=== PATIENT | female | born 1995 | race Hispanic/Latino ===

== ENCOUNTER 2017-05-04 00:31 | Emergency (ER) | payer MEDICAID ==
[2017-05-04] MEDS ORDERED: HYDROXYZINE HCL 25 MG TABLET ONE (00:59)
== END 2017-05-04 01:50 | disposition home or self-care (01) ==
LOC: EDH 00:31
DX: F41.9 Anxiety disorder, unspecified (principal); J45.909 Unspecified asthma, uncomplicated; F43.10 Post-traumatic stress disorder, unspecified; F12.90 Cannabis use, unspecified, uncomplicated; Z88.8 Allergy status to other drugs, medicaments and biological substances; Z72.0 Tobacco use

== ENCOUNTER 2017-06-22 14:59 | Emergency (ER) | payer MEDICAID, OTHER | END 2017-06-22 15:42 | disposition home or self-care (01) | LOC: EDH 14:59 | DX: F41.1 Generalized anxiety disorder (principal); J45.909 Unspecified asthma, uncomplicated; F31.9 Bipolar disorder, unspecified; F43.10 Post-traumatic stress disorder, unspecified; Z88.8 Allergy status to other drugs, medicaments and biological substances ==

== ENCOUNTER 2020-08-30 05:24 | Emergency (ER) | payer MEDICAID ==
[2020-08-30 06:01] LABS: APPEARANCE,URINE Cloudy (CLEAR); BILIRUBIN,URINE Small (NEGATIVE); COLOR,URINE Dark Yellow (YELLOW); GLUCOSE, URINE (UA) Negative (NEGATIVE); KETONES,URINE Negative (NEGATIVE); LEUKOCYTE ESTERASE ,URINE Moderate (NEGATIVE); NITRATE,URINE Positive (NEGATIVE); OCCULT BLOOD,URINE Large (NEGATIVE); PH,URINE 6.5 (5.0-8.0); PROTEIN,URINE Trace mg/dL (NEGATIVE)
[2020-08-30 06:02] LABS: HCG,QUAL RESULT NEGATIVE (NEGATIVE)
[2020-08-30 06:10] LABS: BACTERIA,URINE Rare /HPF (None Seen); RBC,URINE 26-50 /HPF (0-1); SQUAMOUS EPITHELIAL CELL,UR Few /HPF (0-2)
[2020-08-30] MEDS ORDERED: LIDOCAINE HCL 2% JELLY 5 ML ONE (06:47)
[2020-08-30] MEDS ORDERED: KETOROLAC TROMETHAMINE 30MG/ML ONE (07:53)
[2020-08-30 08:16] LABS: BASOPHILS % (AUTO) 0.5 % (0.0-5.0); EOSINOPHILS % (AUTO) 1.4 % (0.0-8.0); HEMATOCRIT 28.5 % (36-48); LYMPHOCYTES % (AUTO) 46.9 % (21.0-51.0); MEAN CORPUSCULAR HEMOGLOBIN 22.8 pg (27.0-33.0); MEAN CORPUSCULAR HGB CONC 30.2 g/dL (32.0-36.0); MEAN CORPUSCULAR VOLUME 75.6 fL (79-99); NEUTROPHILS % (AUTO) 45.9 % (40.0-77.0); PLATELET COUNT (AUTO) 302 K/uL (130-400); RED BLOOD CELL COUNT(AUTO) 3.77 MIL/uL (4.00-5.50); WHITE BLOOD COUNT (AUTO) 8.7 K/uL (4.8-10.8)
[2020-08-30] MEDS ORDERED: CEFTRIAXONE SODIUM 500 MG VIAL ONE (09:45)
[2020-08-30] MEDS ORDERED: MORPHINE SULFATE 2 MG/ML 1ML SYG ONE (09:46)
[2020-08-30] MEDS ORDERED: ONDANSETRON ODT 4 MG TAB ONE (09:46)
[2020-08-30] MEDS ORDERED: ONDANSETRON HCL 4 MG/2 ML VIAL ONE (09:46)
[2020-08-30] MEDS ORDERED: LIDOCAINE HCL-MPF 1% 2ML VIAL ONE (09:47)
[2020-08-30] MEDS ORDERED: AZITHROMYCIN 250 MG TABLET PO ONE (10:03)
[2020-08-31 20:08] LABS: CHLAMYDIA DNA N.A.AMPLIFY Positive (Negative)
== END 2020-08-30 13:43 | disposition home or self-care (01) ==
LOC: EDH 05:24
DX: N76.0 Acute vaginitis (principal); A59.01 Trichomonal vulvovaginitis; D50.9 Iron deficiency anemia, unspecified; J45.909 Unspecified asthma, uncomplicated; F32.9 Major depressive disorder, single episode, unspecified; F41.9 Anxiety disorder, unspecified; F20.9 Schizophrenia, unspecified; Z88.5 Allergy status to narcotic agent
CPT/HCPCS: 36415; 81001; 81025; 85025; 87088; 87210; 87486; 87797; 96372 ×3; 99285; J0696; J1885; J3490; J2405

== ENCOUNTER 2020-11-07 04:33 | Emergency (ER) | payer MEDICAID ==
[~2020-11-07] VITALS: Ht 167.6 cm; Wt 117.9 kg
[2020-11-07 04:40] VITALS: BP 133/95
[2020-11-07] MEDS ORDERED: ACETAMINOPHEN 325 MG TAB PO ONE (05:00)
[2020-11-07 05:05] LABS: BASOPHILS % (AUTO) 0.8 % (0.0-5.0); EOSINOPHILS % (AUTO) 0.4 % (0.0-8.0); HEMATOCRIT 34.4 % (36-48); LYMPHOCYTES % (AUTO) 41.9 % (21.0-51.0); MEAN CORPUSCULAR HEMOGLOBIN 25.6 pg (27.0-33.0); MEAN CORPUSCULAR VOLUME 80.2 fL (79-99); MONOCYTES % (AUTO) 4.8 % (3.0-13.0); PLATELET COUNT (AUTO) 310 K/uL (130-400); RED BLOOD CELL COUNT(AUTO) 4.29 MIL/uL (4.00-5.50); RED CELL DISTRIBUTION WIDTH 19.9 % (11.0-15.5); WHITE BLOOD COUNT (AUTO) 7.5 K/uL (4.8-10.8)
[2020-11-07 05:13] LABS: CREATININE 0.9 mg/dL (0.5-1.5); POTASSIUM 3.6 mmol/L (3.5-5.1)
[2020-11-07 05:18] LABS: ALBUMIN 3.6 g/dL (3.5-5.0); BILIRUBIN,TOTAL 0.3 mg/dL (0.2-1.0); TOTAL PROTEIN, SERUM 8.6 g/dL (6.0-8.3)
[2020-11-07 06:23] VITALS: BP 134/87
[2020-11-07 07:45] VITALS: BP 134/87
[2020-11-07 07:47] LABS: APPEARANCE,URINE Clear (CLEAR); BILIRUBIN,URINE Negative (NEGATIVE); COLOR,URINE Yellow (YELLOW); GLUCOSE, URINE (UA) Negative (NEGATIVE); KETONES,URINE Negative (NEGATIVE); LEUKOCYTE ESTERASE ,URINE Small (NEGATIVE); NITRATE,URINE Negative (NEGATIVE); OCCULT BLOOD,URINE Trace (NEGATIVE); PH,URINE 7.5 (5.0-8.0); PROTEIN,URINE POS 1+ mg/dL (NEGATIVE); UROBILINOGEN,URINE 0.2 mg/dL (0.2-1.0)
[2020-11-07 07:50] LABS: HCG,QUAL RESULT NEGATIVE (NEGATIVE)
[2020-11-07 08:03] LABS: BACTERIA,URINE Few /HPF (None Seen); RBC,URINE 0-1 /HPF (0-1); WBC,URINE 0-1 /HPF (0-1)
[2020-11-07 08:04] LABS: COARSE GRANULAR CASTS,URINE 0-2 /LPF (None Seen); FINE GRANULAR CASTS,URINE 0-2 /LPF (None Seen)
== END 2020-11-07 09:07 | disposition left against medical advice (07) ==
LOC: EDH 04:33
DX: S00.432A Contusion of left ear, initial encounter (principal); S00.431A Contusion of right ear, initial encounter; S30.0XXA Contusion of lower back and pelvis, initial encounter; S00.83XA Contusion of other part of head, initial encounter; S10.93XA Contusion of unspecified part of neck, initial encounter; E66.9 Obesity, unspecified; I10 Essential (primary) hypertension; E11.9 Type 2 diabetes mellitus without complications; Z88.5 Allergy status to narcotic agent; Y08.89XA Assault by other specified means, initial encounter; Y93.89 Activity, other specified; Y92.89 Other specified places as the place of occurrence of the external cause; Y99.8 Other external cause status
CPT/HCPCS: 36415; 80053; 81001; 81025; 85025

== ENCOUNTER 2021-06-10 12:58 | Emergency (ER) | payer MEDICAID ==
[~2021-06-10] VITALS: Ht 167.6 cm; Wt 110.0 kg
[2021-06-10] MEDS ORDERED: LORAZEPAM 1 MG TABLET PO ONE (13:30)
[2021-06-10 13:59] LABS: APPEARANCE,URINE Cloudy (CLEAR); BILIRUBIN,URINE Negative (NEGATIVE); COLOR,URINE Yellow (YELLOW); GLUCOSE, URINE (UA) Negative (NEGATIVE); KETONES,URINE Trace mg/dL (NEGATIVE); LEUKOCYTE ESTERASE ,URINE Moderate (NEGATIVE); NITRATE,URINE Negative (NEGATIVE); OCCULT BLOOD,URINE Negative (NEGATIVE); PH,URINE 6.5 (5.0-8.0); PROTEIN,URINE Trace mg/dL (NEGATIVE)
[2021-06-10 14:02] LABS: BASOPHILS % (AUTO) 0.5 % (0.0-5.0); EOSINOPHILS % (AUTO) 4.7 % (0.0-8.0); HEMATOCRIT 34.5 % (36-48); LYMPHOCYTES % (AUTO) 55.3 % (21.0-51.0); MEAN CORPUSCULAR HEMOGLOBIN 25.7 pg (27.0-33.0); MEAN CORPUSCULAR HGB CONC 30.4 g/dL (32.0-36.0); MEAN CORPUSCULAR VOLUME 84.4 fL (79-99); MONOCYTES % (AUTO) 5.7 % (3.0-13.0); NEUTROPHILS % (AUTO) 33.6 % (40.0-77.0); PLATELET COUNT (AUTO) 345 K/uL (130-400); RED BLOOD CELL COUNT(AUTO) 4.09 MIL/uL (4.00-5.50); RED CELL DISTRIBUTION WIDTH 17.2 % (11.0-15.5); WHITE BLOOD COUNT (AUTO) 6.2 K/uL (4.8-10.8)
[2021-06-10 14:03] LABS: HCG,QUAL RESULT NEGATIVE (NEGATIVE)
[2021-06-10 14:07] LABS: AMPHET/METH SCREEN,URINE NEGATIVE (NEGATIVE); BARBITURATE SCREEN, URINE NEGATIVE (NEGATIVE); BENZODIAZEPINES SCREEN,URINE POSITIVE (NEGATIVE); CANNABINOID SCREEN,URINE POSITIVE (NEGATIVE); COCAINE SCREEN,URINE POSITIVE (NEGATIVE); OPIATE SCREEN,URINE NEGATIVE (NEGATIVE); PHENCYCLIDINE SCREEN,URINE NEGATIVE (NEGATIVE)
[2021-06-10 14:19] VITALS: BP 177/71
[2021-06-10 14:19] LABS: CREATININE 0.7 mg/dL (0.5-1.5); POTASSIUM 3.7 mmol/L (3.5-5.1)
[2021-06-10 14:25] LABS: BILIRUBIN,TOTAL 0.2 mg/dL (0.2-1.0); CRP QUANTITATIVE 33.8 mg/L (0.00-9.0); TOTAL PROTEIN, SERUM 7.4 g/dL (6.0-8.3)
[2021-06-10 14:35] LABS: BACTERIA,URINE Rare /HPF (None Seen); MUCUS,URINE Few LPF (None Seen); SQUAMOUS EPITHELIAL CELL,UR Few /HPF (0-2); WBC,URINE 0-1 /HPF (0-1)
[2021-06-10] MEDS ORDERED: LORAZEPAM 1 MG TABLET ONE (14:42)
== END 2021-06-10 15:32 | disposition home or self-care (01) ==
LOC: EDH 12:58
DX: R53.1 Weakness (principal); F12.10 Cannabis abuse, uncomplicated; F14.10 Cocaine abuse, uncomplicated; F13.10 Sedative, hypnotic or anxiolytic abuse, uncomplicated; J45.909 Unspecified asthma, uncomplicated; E66.9 Obesity, unspecified; Z68.39 Body mass index [BMI] 39.0-39.9, adult
CPT/HCPCS: 36415; 71045; 80053; 80305; 81001; 81025; 84484; 85025; 86140; 87088

== ENCOUNTER 2023-03-07 23:51 | Emergency (ER) | payer MEDICAID ==
[~2023-03-07] VITALS: Ht 167.6 cm; Wt 72.6 kg
[2023-03-08 00:21] LABS: APPEARANCE,URINE CLEAR (CLEAR); BILIRUBIN,URINE NEGATIVE (NEGATIVE); COLOR,URINE LIGHT-YELLOW (YELLOW); GLUCOSE, URINE (UA) NEGATIVE (NEGATIVE); KETONES,URINE NEGATIVE (NEGATIVE); LEUKOCYTE ESTERASE ,URINE NEGATIVE Leu/uL (NEGATIVE); NITRATE,URINE NEGATIVE (NEGATIVE); OCCULT BLOOD,URINE NEGATIVE (NEGATIVE); PH,URINE 6.5 (5.0-8.0); PROTEIN,URINE NEGATIVE (NEGATIVE); UROBILINOGEN,URINE 0.2 mg/dL (0.2-1.0)
[2023-03-08 00:34] LABS: ADD UA MICROSCOPIC NO
[2023-03-08 00:34] LABS: CREATININE 0.5 mg/dL (0.5-1.5); POTASSIUM 3.9 mmol/L (3.5-5.1)
[2023-03-08 00:43] LABS: BASOPHILS # (AUTO) 0.01 K/uL (0.00-0.20); BASOPHILS % (AUTO) 0.2 % (0.0-5.0); EOSINOPHILS # (AUTO) 0.04 K/uL (0.00-0.70); EOSINOPHILS % (AUTO) 0.9 % (0.0-8.0); HEMATOCRIT 28.5 % (36-48); LYMPHOCYTES # (AUTO) 3.1 K/uL (1.0-4.8); LYMPHOCYTES % (AUTO) 72.8 % (21.0-51.0); MEAN CORPUSCULAR HEMOGLOBIN 25.3 pg (27.0-33.0); MEAN CORPUSCULAR HGB CONC 32.3 g/dL (32.0-36.0); MEAN CORPUSCULAR VOLUME 78.3 fL (79-99); MONOCYTES # (AUTO) 0.3 K/uL (0.1-1.0); MONOCYTES % (AUTO) 5.8 % (3.0-13.0); NEUTROPHILS # (AUTO) 0.9 K/uL (1.8-7.7); NEUTROPHILS % (AUTO) 20.3 % (40.0-77.0); PLATELET COUNT (AUTO) 196 K/uL (130-400); RED BLOOD CELL COUNT(AUTO) 3.64 MIL/uL (4.00-5.50); RED CELL DISTRIBUTION WIDTH 19.4 % (11.0-15.5); WHITE BLOOD COUNT (AUTO) 4.3 K/uL (4.8-10.8)
[2023-03-08] MEDS ORDERED: MORPHINE 2 MG SYG IVP ONE (01:30)
[2023-03-08] MEDS ORDERED: LACTATED RINGERS 1000ML 1,000 ML IV ONE (01:30)
[2023-03-08 01:42] LABS: AMPHET/METH SCREEN,URINE NEGATIVE (NEGATIVE); BARBITURATE SCREEN, URINE NEGATIVE (NEGATIVE); BENZODIAZEPINES SCREEN,URINE POSITIVE (NEGATIVE); CANNABINOID SCREEN,URINE POSITIVE (NEGATIVE); COCAINE SCREEN,URINE POSITIVE (NEGATIVE); OPIATE SCREEN,URINE NEGATIVE (NEGATIVE); PHENCYCLIDINE SCREEN,URINE NEGATIVE (NEGATIVE)
[2023-03-08 03:31] VITALS: BP 121/68; PULSE 75; RESP 16; O2SAT 98
== END 2023-03-08 03:38 | disposition home or self-care (01) ==
LOC: EDH 23:51
DX: O20.0 Threatened abortion (principal); O26.891 Other specified pregnancy related conditions, first trimester; F19.10 Other psychoactive substance abuse, uncomplicated; J45.909 Unspecified asthma, uncomplicated; Z3A.13 13 weeks gestation of pregnancy
CPT/HCPCS: 99285; 80048; 80305; 84702; 85025; 86900; 86901; 81003; 36415; 96374; 76801; 96361; J7120; J2270

== ENCOUNTER 2024-03-29 00:48 | Emergency (ER) | payer MEDICAID ==
[~2024-03-29] VITALS: Ht 167.6 cm; Wt 104.3 kg
[2024-03-29 01:20] LABS: BASOPHILS # (AUTO) 0.04 K/uL (0.00-0.20); BASOPHILS % (AUTO) 0.6 % (0.0-5.0); EOSINOPHILS # (AUTO) 0.24 K/uL (0.00-0.70); EOSINOPHILS % (AUTO) 3.7 % (0.0-8.0); HEMATOCRIT 27.4 % (36-48); IMMATURE GRANULOCYTE ABSOLUTE 0.01 K/uL (0-1); LYMPHOCYTES # (AUTO) 2.9 K/uL (1.0-4.8); LYMPHOCYTES % (AUTO) 44.5 % (21.0-51.0); MEAN CORPUSCULAR HEMOGLOBIN 20.3 pg (27.0-33.0); MEAN CORPUSCULAR HGB CONC 29.2 g/dL (32.0-36.0); MEAN CORPUSCULAR VOLUME 69.4 fL (79-99); MONOCYTES # (AUTO) 0.5 K/uL (0.1-1.0); MONOCYTES % (AUTO) 7.2 % (3.0-13.0); NEUTROPHILS # (AUTO) 2.9 K/uL (1.8-7.7); NEUTROPHILS % (AUTO) 43.8 % (40.0-77.0); PLATELET COUNT (AUTO) 424 K/uL (130-400); RED BLOOD CELL COUNT(AUTO) 3.95 MIL/uL (4.00-5.50); RED CELL DISTRIBUTION WIDTH 18.7 % (11.0-15.5); WHITE BLOOD COUNT (AUTO) 6.5 K/uL (4.8-10.8)
[2024-03-29 01:28] LABS: CARBON DIOXIDE 28 mmol/L (21-32); CHLORIDE 107 mmol/L (101-111); CREATININE 0.6 mg/dL (0.5-1.0); GLOMERULAR FILTR. RATE CALC 126 mL/min (>90); GLUCOSE,RANDOM 111 mg/dL (70-105); POTASSIUM 3.4 mmol/L (3.5-5.1); SODIUM SERUM 140 mmol/L (136-145); UREA NITROGEN, BLOOD 4 mg/dL (7-18)
[2024-03-29 01:32] LABS: APPEARANCE,URINE CLEAR (CLEAR); BILIRUBIN,URINE NEGATIVE (NEGATIVE); COLOR,URINE LIGHT-YELLOW (YELLOW); GLUCOSE, URINE (UA) NEGATIVE (NEGATIVE); KETONES,URINE NEGATIVE (NEGATIVE); LEUKOCYTE ESTERASE ,URINE NEGATIVE Leu/uL (NEGATIVE); NITRATE,URINE NEGATIVE (NEGATIVE); OCCULT BLOOD,URINE SMALL (NEGATIVE); PH,URINE 6.5 (5.0-8.0); PROTEIN,URINE NEGATIVE (NEGATIVE); UROBILINOGEN,URINE 0.2 mg/dL (0.2-1.0)
[2024-03-29 01:32] LABS: ALCOHOL, BLOOD 104 mg/dL (0-10)
[2024-03-29 01:40] LABS: ADD UA MICROSCOPIC YES; AMPHET/METH SCREEN,URINE NEGATIVE (NEGATIVE); BARBITURATE SCREEN, URINE NEGATIVE (NEGATIVE); BENZODIAZEPINES SCREEN,URINE POSITIVE (NEGATIVE); CANNABINOID SCREEN,URINE POSITIVE (NEGATIVE); COCAINE SCREEN,URINE NEGATIVE (NEGATIVE); OPIATE SCREEN,URINE NEGATIVE (NEGATIVE); PHENCYCLIDINE SCREEN,URINE NEGATIVE (NEGATIVE)
[2024-03-29 01:52] LABS: MUCUS,URINE RARE LPF (None Seen); RBC,URINE 26-50 /HPF (0-1)
[2024-03-29 02:12] LABS: ACETAMINOPHEN < 1 mcg/mL (10-30); SALICYLATE < 2.8 mg/dL (2.8-20.0)
--- NOTE | 2024-03-29 05:09 | NUR ---
PATIENT TONIGHT HAS BEEN SLEEPING WELL, NO DISTRESS NOTED.
--- NOTE | 2024-03-29 05:23 | NUR ---
[place] TROPICAL SCREENER CALLED AT THIS TIME.
--- NOTE | 2024-03-29 05:30 | EKG ---
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
--- NOTE | 2024-03-29 07:24 | ERN ---
ED Note History of Present Illness Stated Complaint: SI Chief Complaint: Suicidal Ideation Time Seen by MD: 00:52 Allergies: Coded Allergies: haloperidol (Unverified Allergy, Unknown, 08/30/20) Past Medical History Dictation 28-year-old female who presents via EMS with concerns for SI. Patient was trying to get into a psych facility, bring these medical clearance. Patient has no plan. Patient states she has been POA so after weeks. Past Medical History: Asthma, Hypertension Additional Past Medical Hx: PTSD, obesity Surgical History: Tonsillectomy Family History: DM, HTN Social History: Negative, Other : 5 Para: 1 Aborts: 3 Review of System Dictation See HPI Initial Vital Sign VS Vital Signs Date Time Temp Pulse Resp B/P (MAP) Pulse Ox O2 Delivery O2 Flow Rate FiO2 03/29/24 00:50 98.1 91 16 157/94 97 Room Air 0 Physical Exam Dictation No acute physical distress, elevated BMI, heart rate soft nontender no mass I Results (Laboratory/Radiology) Laboratory/Radiology Laboratory Tests Test 03/29/24 01:11 03/29/24 01:24 03/29/24 04:49 White Blood Count 6.5 K/uL (4.8-10.8) Red Blood Count 3.95 MIL/uL (4.00-5.50) L Hemoglobin 8.0 g/dL (12.0-16.0) L Hematocrit 27.4 % (36-48) L Mean Corpuscular Volume 69.4 fL (79-99) L Mean Corpuscular Hemoglobin 20.3 pg (27.0-33.0) L Mean Corpuscular Hemoglobin Concent 29.2 g/dL (32.0-36.0) L Red Cell Distribution Width 18.7 % (11.0-15.5) H Platelet Count 424 K/uL (130-400) H Mean Platelet Volume 9.4 fL (7.5-10.5) Immature Granulocyte % (Auto) 0.2 % (0-1) Neutrophils (%) (Auto) 43.8 % (40.0-77.0) Lymphocytes (%) (Auto) 44.5 % (21.0-51.0) Monocytes (%) (Auto) 7.2 % (3.0-13.0) Eosinophils (%) (Auto) 3.7 % (0.0-8.0) Basophils (%) (Auto) 0.6 % (0.0-5.0) Neutrophils # (Auto) 2.9 K/uL (1.8-7.7) Lymphocytes # (Auto) 2.9 K/uL (1.0-4.8) Monocytes # (Auto) 0.5 K/uL (0.1-1.0) Eosinophils # (Auto) 0.24 K/uL (0.00-0.70) Basophils # (Auto) 0.04 K/uL (0.00-0.20) Absolute Immature Granulocyte (auto 0.01 K/uL (0-1) Nucleated Red Blood Cells 0.0 % (0.0-0.19) Red Blood Cell Morphology ANISO 1+ Sodium Level 140 mmol/L (136-145) Potassium Level 3.4 mmol/L (3.5-5.1) L Chloride Level 107 mmol/L (101-111) Carbon Dioxide Level 28 mmol/L (21-32) Blood Urea Nitrogen 4 mg/dL (7-18) L Creatinine 0.6 mg/dL (0.5-1.0) Glomerular Filtration Rate Calc 126 mL/min (>90) Random Glucose 111 mg/dL (70-105) H Total Calcium 8.0 mg/dL (8.5-10.1) L Salicylates Level < 2.8 mg/dL (2.8-20.0) L Acetaminophen Level < 1 mcg/mL (10-30) L Serum Alcohol 104 mg/dL (0-10) H 9 mg/dL (0-10) Urine Color LIGHT-YELLOW (YELLOW) Urine Appearance CLEAR (CLEAR) Urine pH 6.5 (5.0-8.0) Urine Specific [place] 1.015 (1.001-1.031) Urine Protein NEGATIVE mg/dL (NEGATIVE) Urine Glucose (UA) NEGATIVE mg/dL (NEGATIVE) Urine Ketones NEGATIVE mg/dL (NEGATIVE) Urine Occult Blood SMALL (NEGATIVE) H Urine Nitrate NEGATIVE (NEGATIVE) Urine Bilirubin NEGATIVE mg/dL (NEGATIVE) Urine Urobilinogen 0.2 mg/dL (0.2-1.0) Urine Leukocyte Esterase NEGATIVE Ju/uL Urine RBC 26-50 /HPF (0-1) H Urine WBC 2-5 /HPF (0-1) H Urine Bacteria None /HPF (None Seen) Urine Opiates Screen NEGATIVE (NEGATIVE) Urine Barbiturates Screen NEGATIVE (NEGATIVE) Urine Phencyclidine Screen NEGATIVE (NEGATIVE) Urine Amphetamines Screen NEGATIVE (NEGATIVE) Urine Benzodiazepines Screen POSITIVE (NEGATIVE) H Urine Cocaine Screen NEGATIVE (NEGATIVE) Urine Marijuana (THC) Screen POSITIVE (NEGATIVE) H ED Course ED Course Orders Procedure Category Date Status Time Cbc With Differential LAB 03/29/24 Complete 00:52 Basic Metabolic Panel LAB 03/29/24 Complete :52 Urinalysis Profile LAB 03/29/24 Complete 00:52 Drug Screen Urine LAB 03/29/24 Complete 00:52 12 Lead Ekg Tracing- EKG 03/29/24 Complete Technical 00:52 Alcohol, Blood LAB 03/29/24 Complete : Acetaminophen LAB 03/29/24 Complete Salicylate LAB 03/29/24 Complete : Alcohol, Blood LAB 03/29/24 Complete 04:43 Vital Signs Date Time Temp Pulse Resp B/P (MAP) Pulse Ox O2 Delivery O2 Flow Rate FiO2 03/29/24 00:50 98.1 91 16 157/94 97 Room Air 0 Medical Decision Making MDM Ddx: Occult head trauma versus electrolyte derangement versus intoxication versus as risky psychosis All diagnostics and imaging interpreted by me EKG shows no interval abnormalities. Acetaminophen, salicylate levels within normal limits. Patient initially intoxicated, we will repeat alcohol level is acceptable for meth of Hoffa's asthma. Patient's UDS positive for cannabinoids and benzodiazepines. Electrolytes within normal limits. Behavioral health Assessment pending MDM: Differential diagnosis: Rationale: Tests considered and ordered secondary to shared decision making include: Previous outside records reviewed: Old ER visits. Risk of complication and/or morbidity or mortality of patient management: None Medications-Per medication reconciliation Need for hospitalization: Patient does not meet criteria for hospitalization. Need for emergency major/minor surgery: No There are no social concerns with this patient. Prescription drug management Prescriptions will include symptomatic care Patient's prior external medical records from other ER visits were reviewed by me as indicated. Prior testing and results from previous visits were reviewed. Prior tests were taken into account with medical decision making and resource utilization, independent historian/historians were used to obtain complete medical history. I independently interpreted the test that were performed, results were reviewed by me and considered findings on radiology if ordered. Medical management and examination interpretation discussions were had by me with other qualified healthcare professionals as indicated for the patient's care. Patient had alcohol intoxication and drug abuse, suicidal ideations, patient has now sobered up evaluated by text with topical hospital social worker who agrees with outpatient follow up we will be seen tomorrow and re-evaluated has depressive disorder and sees her psychiatrist. DX & DISP Disposition: Discharge Departure Impression: Primary Impression: Polysubstance abuse Additional Impression: Depression Condition: Stable Referrals: SELF,REFERRAL (PCP) ABHIJEET REHMAN DO Mar 29, 2024 07:24 JEY GEORGE MD Mar 29, 2024 08:47
--- NOTE | 2024-03-29 08:00 | NUR ---
TROPICAL SCREENER BY TO SEE PT.
[2024-03-29 08:59] VITALS: BP 140/99; PULSE 82; RESP 17; TEMP 98; O2SAT 100
== END 2024-03-29 08:55 | disposition home or self-care (01) ==
LOC: EDH 00:48
DX: F19.10 Other psychoactive substance abuse, uncomplicated (principal); F32.A Depression, unspecified; J45.909 Unspecified asthma, uncomplicated; I10 Essential (primary) hypertension; E66.9 Obesity, unspecified; Z90.89 Acquired absence of other organs
CPT/HCPCS: 99284; 80048; 80305; 85025; 36415; 93005; 81001; G0481